=== PATIENT | male | born 1940 | race Caucasian/White ===

== ENCOUNTER 2017-10-17 08:47 | Emergency (ER) | payer OTHER ==
[~2017-10-17] VITALS: Ht 190.5 cm; Wt 158.6 kg
[~2017-10-17 08:47] MED LIST: ALEVE220 M1; ASPIRIN E.C. 8181 MG PO; COZAAR 50MG50 MG/TAB PO; FLOMAX0.4 MG PO; FLONASE ALLERG9.9 ML NS; FUROSEMIDE40 MG PO; GLIPIZIDE10 M2 PO; METHIMAZOLE10 M1 PO; MULTIVITAMIN1 SGL; OMEGA-31000 M1 PO; POTASSIUM CHLO20 ME3 PO; PROAIR HFA0.09 MG/AC IH; PROPRANOLOL HCL40 M2 PO; SIMVASTATIN80 MG PO; SYMBICORT1 AE2 IH; VICTOZA 3-0.6 MG/0.1 SQ
[2017-10-17 10:08] LABS: ALBUMIN 3.5 g/dL (3.5-5.0); BUN/CREATININE RATIO 14.1 (6.0-26.0); CALCIUM 8.7 mg/dL (8.4-10.2); POTASSIUM 4.1 mmol/L (3.6-5.0); TOTAL BILIRUBIN 0.7 mg/dL (0.2-1.3); TOTAL PROTEIN 6.8 g/dL (6.3-8.2)
[2017-10-17 10:10] LABS: CKMB ISOENZYME 0.4 ng/mL (0.6-3.5); HEMATOCRIT 44.4 % (42.0-52.0); HEMOGLOBIN 13.9 g/dL (13.5-18.0); MEAN CELL VOLUME 84 fl (78-100); MEAN CORPUSCULAR HEMOGLOBIN 26 pg (27-31); MEAN CORPUSCULAR HGB CONC 31 g/dL (33-37); MEAN PLATELET VOLUME 10.1 fl (7.4-10.4); PLATELET COUNT 140 K/mm3 (130-400); RED BLOOD COUNT 5.27 M/mm3 (4.20-5.60); RED CELL DISTRIBUTION WIDTH 14.7 % (11.5-14.5); WHITE BLOOD COUNT 6.3 K/mm3 (4.8-10.8)
[2017-10-17 10:14] LABS: TROPONIN-I < 0.03 ng/mL (0.00-0.06)
[2017-10-17 10:18] LABS: BAND 14 % (0-10); LYMPHOCYTE 18 % (20-51); MONOCYTE 7 % (3-10); NEUTROPHILS 60 % (42-75)
[2017-10-17] MEDS ORDERED: ZITHROMAX Z PA250 MG PO (11:07)
[2017-10-17] MEDS ORDERED: MEDROL DOSEPAK4 MG PO (11:07)
[2017-10-17] MEDS ORDERED: D-1000 185 MG-11 TAB PO (11:08)
[2017-10-17] MEDS ORDERED: SINGULAIR PO (11:09)
[2017-10-17] MEDS ORDERED: PIOGLITAZONE HC30 MG PO (11:14)
[2017-10-17] MEDS ORDERED: CETIRIZINE HCL10 MG PO (11:15)
[2017-10-17] MEDS ORDERED: NATURE'S BLEND500 M1 PO (11:16)
[2017-10-17 11:29] VITALS: BP 117/64
== END 2017-10-17 11:37 | disposition home or self-care (01) ==
LOC: ED 08:47
PROVIDERS: Physician Assistant
DX: J44.0 Chronic obstructive pulmonary disease with (acute) lower respiratory infection (principal); J20.9 Acute bronchitis, unspecified; I48.91 Unspecified atrial fibrillation; R09.02 Hypoxemia; E11.9 Type 2 diabetes mellitus without complications; I10 Essential (primary) hypertension; E78.5 Hyperlipidemia, unspecified; Z79.82 Long term (current) use of aspirin; Z79.84 Long term (current) use of oral hypoglycemic drugs

== ENCOUNTER 2023-07-25 16:21 | Inpatient (IN) | payer OTHER ==
[~2023-07-25] VITALS: Ht 190.5 cm; Wt 124.7 kg
[~2023-07-25 16:21] MED LIST changes: +ACETAMINOPHEN500 M5 PO; +ACIDOPHILUS LA1 EAC1 PO; +AIRDUO DIGIHAL1 EAC1 IH; +CALCIUM500 M1 PO; +CETIRIZINE HCL10 MG PO; +D-1000 185 MG-11 TAB PO; +DAILY VALUE1 EACH PO; +FISH OIL1 IU PO; +FLAX SEED POWDER; +FLUTICASONE P15.8 ML NS; +FLUTICASONE-SA1 EAC4 IH; +GABAPENTIN100 MG PO; +GLUCOTROL 5M5 MG/TAB PO; +LASIX20 M1 PO; +LUBRICANT EYE D10 ML OP; +MAGIC MOUTHWASH1 M1 PO; +MEDROL DOSEPAK4 MG PO; +METAMUCIL0.4 GM PO; +NATURE'S BLEND500 M1 PO; +NEURONTIN100 M1 PO; +ONDANSETRON HYDR8 MG PO; +OZEMPIC1 MG/0.71 SQ; +PIOGLITAZONE HC30 MG PO; +PSYLLIUM HUSK; +SIMVASTATIN40 M1 PO; +SINGULAIR 110 MG/TAB PO; +SINGULAIR PO; +SPIRIVA RE2.5 MCG/Ac IH; +ST. JOSEPH ASPI81 MG PO; +SYSTANE COMPLE1 EACH OP; +VITAMIN D325 MC4 PO; +XIIDRA1 EACH OP; +ZITHROMAX Z PA250 MG PO; +ZYRTEC ALLERGY10 MG PO; +[UNRECOGNIZED DRUG - CODE]
[2023-07-25 19:28] VITALS: BP 121/68
[2023-07-25 19:49] LABS: HEMATOCRIT 24.1 % (42.0-52.0); HEMOGLOBIN 7.7 g/dL (13.5-18.0); MEAN CELL VOLUME 85 fl (78-100); MEAN CORPUSCULAR HEMOGLOBIN 27 pg (27-31); MEAN CORPUSCULAR HGB CONC 32 g/dL (33-37); MEAN PLATELET VOLUME 8.9 fl (7.4-10.4); PLATELET COUNT 170 K/mm3 (130-400); RED BLOOD COUNT 2.83 M/mm3 (4.20-5.60); RED CELL DISTRIBUTION WIDTH 15.4 % (11.5-14.5); WHITE BLOOD COUNT 4.3 K/mm3 (4.8-10.8)
[2023-07-25 20:02] LABS: ALBUMIN 2.7 g/dL (3.4-4.8)
[2023-07-25 20:04] LABS: CALCIUM 8.4 mg/dL (8.3-10.5)
[2023-07-25 20:05] LABS: TOTAL PROTEIN 5.2 g/dL (6.2-8.1)
[2023-07-25 20:07] LABS: TOTAL BILIRUBIN 0.4 mg/dL (0.2-1.2)
[2023-07-25 20:36] LABS: BAND 1 % (0-10); LYMPHOCYTE 8 % (20-51); NEUTROPHILS 80 % (42-75)
[2023-07-25 20:37] LABS: MICROCYTOSIS 1+; MONOCYTE 9 % (3-10); OVALOCYTES 1+; POLYCHROMASIA 1+
[2023-07-26 00:26] LABS: URINE APPEARANCE HAZY; URINE GLUCOSE NEGATIVE (NEGATIVE); URINE KETONE NEGATIVE (NEGATIVE); URINE UROBILINOGEN NORMAL (NORMAL)
[2023-07-26 00:27] LABS: URINE BLOOD 250 ery/uL (NEGATIVE)
[2023-07-26 00:38] LABS: URINE LEUKOCYTE ESTERASE TRACE (NEGATIVE)
[2023-07-26 00:40] LABS: URINE MUCUS PRESENT (NOT PRESENT)
[2023-07-26 06:06] VITALS: BP 103/52
[2023-07-26 18:04] VITALS: BP 133/65
[2023-07-27 06:25] VITALS: BP 100/61
[2023-07-27 09:35] LABS: HEMATOCRIT 24.3 % (42.0-52.0); HEMOGLOBIN 7.7 g/dL (13.5-18.0); MEAN CELL VOLUME 87 fl (78-100); MEAN CORPUSCULAR HEMOGLOBIN 28 pg (27-31); MEAN CORPUSCULAR HGB CONC 32 g/dL (33-37); MEAN PLATELET VOLUME 8.8 fl (7.4-10.4); PLATELET COUNT 179 K/mm3 (130-400); RED BLOOD COUNT 2.78 M/mm3 (4.20-5.60); RED CELL DISTRIBUTION WIDTH 15.7 % (11.5-14.5); WHITE BLOOD COUNT 4.3 K/mm3 (4.8-10.8)
[2023-07-27 09:46] LABS: ALBUMIN 2.7 g/dL (3.4-4.8)
[2023-07-27 09:47] LABS: CALCIUM 8.7 mg/dL (8.3-10.5)
[2023-07-27 09:49] LABS: TOTAL PROTEIN 5.3 g/dL (6.2-8.1)
[2023-07-27 09:50] LABS: TOTAL BILIRUBIN 0.5 mg/dL (0.2-1.2)
[2023-07-27 11:28] LABS: LYMPHOCYTE 7 % (20-51); MONOCYTE 6 % (3-10); NEUTROPHILS 82 % (42-75)
[2023-07-27 11:29] LABS: HYPOCHROMIA 1+
[2023-07-27 11:33] LABS: OVALOCYTES 1+
[2023-07-27 18:41] VITALS: BP 117/67
[2023-07-28 06:19] VITALS: BP 112/56
[2023-07-28 18:34] VITALS: BP 134/76
[2023-07-29 06:08] VITALS: BP 104/61
[2023-07-29 17:25] VITALS: BP 148/70
[2023-07-30 05:34] VITALS: BP 108/62
[2023-07-30 18:02] VITALS: BP 116/68
[2023-07-31 05:42] VITALS: BP 116/68
[2023-07-31 18:05] VITALS: BP 125/64
[2023-08-01 05:37] VITALS: BP 114/52
[2023-08-01 17:04] VITALS: BP 147/81
[2023-08-02 05:24] VITALS: BP 117/68
[2023-08-02 08:24] LABS: ALBUMIN 2.6 g/dL (3.4-4.8)
[2023-08-02 08:25] LABS: CALCIUM 8.4 mg/dL (8.3-10.5)
[2023-08-02 08:26] LABS: TOTAL PROTEIN 5.1 g/dL (6.2-8.1)
[2023-08-02 08:28] LABS: TOTAL BILIRUBIN 0.4 mg/dL (0.2-1.2)
[2023-08-02 08:35] LABS: HEMATOCRIT 25.7 % (42.0-52.0); HEMOGLOBIN 7.9 g/dL (13.5-18.0); MEAN CELL VOLUME 88 fl (78-100); MEAN CORPUSCULAR HEMOGLOBIN 27 pg (27-31); MEAN CORPUSCULAR HGB CONC 31 g/dL (33-37); MEAN PLATELET VOLUME 8.9 fl (7.4-10.4); PLATELET COUNT 190 K/mm3 (130-400); RED BLOOD COUNT 2.92 M/mm3 (4.20-5.60); RED CELL DISTRIBUTION WIDTH 15.9 % (11.5-14.5); WHITE BLOOD COUNT 3.1 K/mm3 (4.8-10.8)
[2023-08-02 09:43] LABS: LYMPHOCYTE 17 % (20-51); MONOCYTE 11 % (3-10); NEUTROPHILS 69 % (42-75)
[2023-08-02 17:38] VITALS: BP 129/74
[2023-08-03 05:19] VITALS: BP 127/71
[2023-08-03 18:22] VITALS: BP 134/66
[2023-08-04 05:56] VITALS: BP 130/57
[2023-08-04 17:26] VITALS: BP 121/70
[2023-08-05 06:00] VITALS: BP 124/62
[2023-08-05 17:08] VITALS: BP 136/78
[2023-08-06 05:44] VITALS: BP 149/73
[2023-08-06 17:22] VITALS: BP 121/66; BP_SYST 131
[2023-08-07 05:33] VITALS: BP 113/56
[2023-08-07 18:12] VITALS: BP 122/76
[2023-08-08 05:48] VITALS: BP 103/59
[2023-08-08 17:32] VITALS: BP 107/68
[2023-08-09 05:42] VITALS: BP 110/56
[2023-08-09 07:51] LABS: HEMATOCRIT 26.4 % (42.0-52.0); MEAN CELL VOLUME 90 fl (78-100); MEAN CORPUSCULAR HEMOGLOBIN 27 pg (27-31); MEAN CORPUSCULAR HGB CONC 30 g/dL (33-37); MEAN PLATELET VOLUME 8.7 fl (7.4-10.4); PLATELET COUNT 153 K/mm3 (130-400); RED BLOOD COUNT 2.94 M/mm3 (4.20-5.60); RED CELL DISTRIBUTION WIDTH 16.5 % (11.5-14.5)
[2023-08-09 08:00] LABS: ALBUMIN 2.7 g/dL (3.4-4.8)
[2023-08-09 08:02] LABS: CALCIUM 8.6 mg/dL (8.3-10.5)
[2023-08-09 08:03] LABS: TOTAL PROTEIN 5.3 g/dL (6.2-8.1)
[2023-08-09 08:05] LABS: TOTAL BILIRUBIN 0.4 mg/dL (0.2-1.2)
[2023-08-09 08:53] LABS: LYMPHOCYTE 18 % (20-51); MONOCYTE 10 % (3-10); NEUTROPHILS 70 % (42-75)
[2023-08-09 17:15] VITALS: BP 116/73
[2023-08-10 05:57] VITALS: BP 111/72
[2023-08-10 18:00] VITALS: BP 116/57
[2023-08-11 05:40] VITALS: BP 116/74
[2023-08-11 10:15] VITALS: BP 119/74
== END 2023-08-11 11:30 | DRG 560 ==
LOC: MED/SURG 16:21
PROVIDERS: Family Medicine; ADMIT Physician Assistant
DX: S82.102D Unspecified fracture of upper end of left tibia, subsequent encounter for closed fracture with routine healing (principal); N39.0 Urinary tract infection, site not specified; S82.492D Other fracture of shaft of left fibula, subsequent encounter for closed fracture with routine healing; C61 Malignant neoplasm of prostate; J44.9 Chronic obstructive pulmonary disease, unspecified; E11.9 Type 2 diabetes mellitus without complications; N40.1 Benign prostatic hyperplasia with lower urinary tract symptoms; R33.8 Other retention of urine; D64.9 Anemia, unspecified; W18.30XD Fall on same level, unspecified, subsequent encounter
CPT/HCPCS: A9270; J0696; J1650; L1830